=== PATIENT | female | born 1960 | race Caucasian/White ===

== ENCOUNTER → 2019-11-30 10:19 | Outpatient (CLI) | payer OTHER, SELFPAY ==
--- NOTE | ~2019-11-30 | DEXA_ITS ---
Bone Density Report Name: Lesly Corral Age: 59 Sex: Female Ethnicity: White Date of : 1960 Indication: monitoring treatment; height loss; hysterectomy; postmenopausal Referring Provider: MARILU, ALEX Study: Bone densitometry was performed. Exam Date: November 30, 2019 Accession number: [id number] Bone Density: Region BMD T-score Z-score Classification AP Spine (L2, L3) 1.105 0.4 1.7 Normal Femoral Neck (Left) 0.761 -0.8 0.4 Normal Total Hip (Left) 0.974 0.3 1.1 Normal Femoral Neck (Right) 0.872 0.2 1.4 Normal Total Hip (Right) 0.992 0.4 1.3 Normal Total Hip Mean 0.983 0.4 1.2 Normal World Health Organization criteria for BMD impression classify patients as: Normal (T-score at or above -1.0), Osteopenia (T-score between -1.0 and -2.5), or Osteoporosis (T-score at or below -2.5). 10-year Fracture Risk: FRAX not reported because: All T-scores for Spine Total, Hip Total, Femoral Neck at or above -1.0 Treated for osteoporosis Previous Exams: Region Exam Age BMD T-score BMD Change BMD Change Date g/cm2 vs Baseline vs Previous AP Spine(L2, L3) 11/30/2019 59 1.105 0.4 0.102 0.034* 06/13/2012 52 1.072 0.1 0.069 0.011 05/30/2009 48 1.060 0.0 0.057 0.057 04/23/2005 44 1.003 -0.5 Total Hip(Left) 11/30/2019 59 0.974 0.3 -0.055 0.023 06/13/2012 52 0.951 0.1 -0.078 0.015 05/30/2009 48 0.937 0.0 -0.093 -0.093 04/23/2005 44 1.029 0.7 Total Hip(Right) 11/30/2019 59 0.992 0.4 -0.048 0.016 06/13/2012 52 0.976 0.3 -0.064 0.018 05/30/2009 48 0.958 0.1 -0.082 -0.082 04/23/2005 44 1.040 0.8 *Denotes significance at 95% confidence level, LSC for AP Spine = 0.022 g/cm2, LSC for Total Hip = 0.027 g/cm2 Clinical Information Provided by Patient: Is being treated for osteoporosis Has used the following medications: Fosamax (i.e. alendronate), HRT (i.e. estrogen/hormone therapy), Vitamin D Has the following medical conditions: Hysterectomy Patient maximum height was 63 Menopause Age: 42 No regular weight bearing exercise Does not regularly consume dairy products Drinks caffeinated beverages Onset of menses at age 11 Number of children 0 Missed period for more than 6 months in a row Impression: The patient has normal
== END ==
PROVIDERS: Visit Provider Nurse Practitioner
DX: M85.88 Other specified disorders of bone density and structure, other site (principal)
CPT/HCPCS: 77080

== ENCOUNTER → 2022-07-30 09:35 | Outpatient (CLI) | payer BC, SELFPAY ==
--- NOTE | ~2022-07-30 | DEXA_ITS ---
Bone Density Report Name: KYLE WARD Age: 62 Sex: Female Ethnicity: White Date of : 1960 Indication: postmenopausal; screening for osteoporosis; height loss; hysterectomy; Referring Provider: MARILU, ALEX Study: Bone densitometry was performed. Exam Date: July 30, 2022 Accession number: [id number] Bone Density: Region BMD T-score Z-score Classification AP Spine (L2, L3) 1.065 0.1 1.6 Normal Femoral Neck (Left) 0.687 -1.5 -0.1 Osteopenia Total Hip (Left) 0.919 -0.2 0.8 Normal Femoral Neck (Right) 0.790 -0.5 0.8 Normal Total Hip (Right) 0.922 -0.2 0.8 Normal Total Hip Mean 0.921 -0.2 0.8 Normal World Health Organization criteria for BMD impression classify patients as: Normal (T-score at or above -1.0), Osteopenia (T-score between -1.0 and -2.5), or Osteoporosis (T-score at or below -2.5). 10-year Fracture Risk(1): Major Osteoporotic Fracture 7.2% Hip Fracture 0.6% Reported Risk Factors: [place] (), Neck BMD=0.687, BMI=39.1 (1) FRAX(R) Version 3.08. Fracture probability calculated for an untreated patient. Fracture probability may be lower if the patient has received treatment. Previous Exams: Region Exam Age BMD T-score BMD Change BMD Change Date g/cm2 vs Baseline vs Previous AP Spine(L2, L3) 07/30/2022 62 1.065 0.1 0.062* -0.040 11/30/2019 59 1.105 0.4 0.102 0.034* 06/13/2012 52 1.072 0.1 0.069 0.011 05/30/2009 48 1.060 0.0 0.057 0.057 04/23/2005 44 1.003 -0.5 Total Hip(Left) 07/30/2022 62 0.919 -0.2 -0.110* -0.055 11/30/2019 59 0.974 0.3 -0.055 0.023 06/13/2012 52 0.951 0.1 -0.078 0.015 05/30/2009 48 0.937 0.0 -0.093 -0.093 04/23/2005 44 1.029 0.7 Total Hip(Right) 07/30/2022 62 0.922 -0.2 -0.118* -0.070 11/30/2019 59 0.992 0.4 -0.048 0.016 06/13/2012 52 0.976 0.3 -0.064 0.018 05/30/2009 48 0.958 0.1 -0.082 -0.082 04/23/2005 44 1.040 0.8 *Denotes significance at 95% confidence level, LSC for AP Spine = 0.022 g/cm2, LSC for Total Hip = 0.027 g/cm2 Clinical Information Provided by Patient: Has used the following medications: Vitamin D, Calcium, MTV Has the following medical conditions: Hysterectomy Patient maximum height was 63.0 Menopause Age: 42 No r
== END ==
PROVIDERS: PCP Family Medicine; Visit Provider Nurse Practitioner
DX: Z78.0 Asymptomatic menopausal state (principal); M85.852 Other specified disorders of bone density and structure, left thigh
CPT/HCPCS: 77080

== ENCOUNTER → 2023-02-17 11:30 | Outpatient (CLI) | payer BC, SELFPAY ==
--- NOTE | ~2023-02-17 | XR_ITS ---
AP, oblique, and lateral views of the left second toe CLINICAL HISTORY: Pain FINDINGS: No acute fracture or dislocation seen. Probable minimal degenerative change of the interpha langeal joints of the second and third toes. Soft tissues are unremarkable. IMPRESSION: No acute abnormality seen. Mild degenerative change of the interphalangeal joints of the second and third left toes. Reviewed, dictated and finalized at location .
== END ==
PROVIDERS: PCP Family Medicine; Visit Provider Physician Assistant Medical
DX: M79.675 Pain in left toe(s) (principal)
CPT/HCPCS: 73660

== ENCOUNTER 2023-07-08 00:26 | Day surgery (SDC) | payer BC, SELFPAY ==
[2023-06-27 15:29] VITALS: BMI 35.9
[2023-07-08 06:51] VITALS: BP 163/73; PULSE 76; RESP 20; TEMP 36.2; O2SAT 99; BMI 35.0
[2023-07-08] MEDS: LACTATED RINGERS 1,000 ML 150 ML IV CONT (07:02)
[2023-07-08 07:14] LABS: Glucose Point of Care 135 mg/dl (65-105)
--- NOTE | 2023-07-08 07:24 | PM.HPGS ---
History of Present Illness History of Present Illness Consent: Risks, benefits, and alternatives have been discussed and questions answered. Patient agrees to proceed with procedure. Chief complaint: positive cologuard Narrative: Lesly Corral is a 63 year old female Presents for screening colonoscopy. Patient recently found to have positive Cologuard test. She reports her weight appetite bowel movements are normal. In the past she had a history of an anal fissure. She states she strains stools occasionally. Family history is noncontributory. Review of Systems Review of Systems: Review of systems noncontributory. [facility] Past Medical History Medical History Allergic rhinitis Broken wrist Chronic renal insufficiency, stage III (moderate) Diabetes mellitus Hypertension Mixed hyperlipidemia Surgical History Surgical History History of hysterectomy History of tonsillectomy Family History Family History Mother Family history of multiple sclerosis Social History Social History Smoking status: Never smoker Second hand tobacco smoke exposure: No Alcohol intake: current Alcohol use details: seldom Substance use: never Substance use type: does not use Lack of Transportation: No Lack of Food: Never True Current Housing: I Have Housing Concerned About Future Housing: No Difficulty Paying Gas/Electric Bills: No Difficulty Paying for Meds: No Currently Unemployed: No Education: Trade/Vocational Certificate Difficulty w/ Childcare or Family Care: No Living arrangements: alone Occupation/Education: occupation Gender identity (if verbalized by the patient): Female Spiritual care concerns: No Agree to blood products: Yes Meds Home Medications and Allergies Home Medications Medication Instructions Recorded Confirmed Type calcium carbonate 600 mg-vitamin 1 tablet PO DAILY 07/25/19 06/27/23 History D3 5 mcg (200 unit) tablet vitamin B12 500 mcg-folic acid 400 1 tablet PO DAILY 10/09/21 06/27/23 History mcg tablet blood sugar diagnostic (Blood #50 ea 04/09/22 03/18/23 Rx Glucose Test strips) blood-glucose meter #1 ea 04/09/22 03/18/23 Rx cholecalciferol (vitamin D3) 125 125 mcg PO DAILY 04/09/22 06/27/23 History mcg (5,000 unit) capsule (Dialyvite Vitamin D) omega-3 fatty acids-fish oil 360 1 cap PO BID 04/09/22 06/27/23 History mg-1,200 mg capsule (Fish Oil) fenofibrate micronized 67 mg 67 mg PO DAILY #90 caps 12/07/22 06/27/23 Rx capsule hydrochlorothiazide 25 mg tablet 25 mg PO DAILY #90 tabs 04/27/23 06/27/23 Rx losartan 100 mg tablet 100 mg PO DAILY #90 tabs 04/27/23 06/27/23 Rx levothyroxine 25 mcg tablet See Rx Instructions PO DAILY #45 06/02/23 06/27/23 Rx tabs metformin 1,000 mg tablet 1,000 mg PO BID #60 tabs 06/02/23 06/27/23 Rx colchicine (gout) 0.6 mg tablet 0.6 mg PO BID PRN gout #20 tabs 06/03/23 06/27/23 Rx Allergies Allergy/AdvReac Type Severity Reaction Status Date / Time ARTIFICIAL NAIL PRODUCT AdvReac Mild SORE, Uncoded 07/08/23 06:48 SWELLING CUTICLES Vital Signs Vital Signs - 24 hr 07/08/23 06:51 Temperature 97.1 F L Pulse Rate 76 Respiratory Rate 20 Blood Pressure 163/73 H Pulse Oximetry 99 Oxygen Delivery Room Air Exam Narrative: Physical exam reveals patient to be alert. Vital signs stable. HEENT exam is unremarkable. Patient is anicteric. Lungs are clear to auscultation and percussion. Heart is without murmur or extra sounds. Abdominal exam bowel sounds are present soft nontender with no hepatosplenomegaly. digital rectal exam is normal. Assessment and Plan Assessment and plan (1) Positive colorectal cancer screening using Cologuard test: C
--- NOTE | 2023-07-08 07:45 | WPDANESEPPF ---
Anes - Initial Pre Proc Eval Procedure: Operation Date: 07/08/23 08:00 Proposed Procedures p Colonoscopy - Lc Pruitt MD Date/Time: 07/08/23 07:45 Surgeon: Lc Pruitt MD Pre Op Diagnosis: positive cologuard Patient Data Age: 63 Gender: F Height: 1.63 m Weight: 92.6 kg Last Vital Signs Temp 97.1 F L 07/08/23 06:51 Pulse 76 07/08/23 06:51 Resp 20 07/08/23 06:51 BP 163/73 H 07/08/23 06:51 Pulse Ox 99 07/08/23 06:51 O2 Del Method Room Air 07/08/23 06:51 Allergies Allergy/AdvReac Type Severity Reaction Status Date / Time ARTIFICIAL NAIL PRODUCT AdvReac Mild SORE, Uncoded 07/08/23 06:48 SWELLING CUTICLES Home Medications Medication Instructions Recorded Confirmed Type calcium carbonate 600 mg-vitamin 1 tablet PO DAILY 07/25/19 06/27/23 History D3 5 mcg (200 unit) tablet vitamin B12 500 mcg-folic acid 400 1 tablet PO DAILY 10/09/21 06/27/23 History mcg tablet blood sugar diagnostic (Blood #50 ea 04/09/22 03/18/23 Rx Glucose Test strips) blood-glucose meter #1 ea 04/09/22 03/18/23 Rx cholecalciferol (vitamin D3) 125 125 mcg PO DAILY 04/09/22 06/27/23 History mcg (5,000 unit) capsule (Dialyvite Vitamin D) omega-3 fatty acids-fish oil 360 1 cap PO BID 04/09/22 06/27/23 History mg-1,200 mg capsule (Fish Oil) fenofibrate micronized 67 mg 67 mg PO DAILY #90 caps 12/07/22 06/27/23 Rx capsule hydrochlorothiazide 25 mg tablet 25 mg PO DAILY #90 tabs 04/27/23 06/27/23 Rx losartan 100 mg tablet 100 mg PO DAILY #90 tabs 04/27/23 06/27/23 Rx levothyroxine 25 mcg tablet See Rx Instructions PO DAILY #45 06/02/23 06/27/23 Rx tabs metformin 1,000 mg tablet 1,000 mg PO BID #60 tabs 06/02/23 06/27/23 Rx colchicine (gout) 0.6 mg tablet 0.6 mg PO BID PRN gout #20 tabs 06/03/23 06/27/23 Rx Laboratory Tests 07/08/23 07:00 POC Capillary Glucose 135 H mg/dl (65-105) Patient hx anesthesia problems: none Family hx anesthesia problems: none Results Review: All pre-operative results and documents have been reviewed as part of the pre-operative evaluation. [facility] Past Medical History Medical History Allergic rhinitis Broken wrist Chronic renal insufficiency, stage III (moderate) Diabetes mellitus Hypertension Mixed hyperlipidemia Surgical History Surgical History History of hysterectomy History of tonsillectomy Family History Family History Mother Family history of multiple sclerosis Social History Social History Smoking status: Never smoker Second hand tobacco smoke exposure: No Alcohol intake: current Alcohol use details: seldom Substance use: never Substance use type: does not use Lack of Transportation: No Lack of Food: Never True Current Housing: I Have Housing Concerned About Future Housing: No Difficulty Paying Gas/Electric Bills: No Difficulty Paying for Meds: No Currently Unemployed: No Education: Trade/Vocational Certificate Difficulty w/ Childcare or Family Care: No Living arrangements: alone Occupation/Education: occupation Gender identity (if verbalized by the patient): Female Spiritual care concerns: No Agree to blood products: Yes Anes - Eval Final PreProcedure Day of Procedure 07/08/23 07:45 Patient weight: obese Heart: regular rate and rhythm Lungs: clear to auscultation Airway: Mallampati scale class III Neurological: alert and oriented Last oral intake: >/= 8 hours ASA classification: III Emergent: no Anesthetic plan: proceed Anesthesia type and monitoring: general GIVS and standard monitoring Results Review: All pre-operative results and documents have been reviewed as part of the pre-operative evaluation. Informed Consent:
[2023-07-08 08:13] VITALS: BP 107/61; PULSE 65; RESP 19; O2SAT 99
[2023-07-08 08:23] VITALS: BP 136/85; PULSE 64; RESP 20; O2SAT 99
[2023-07-08 08:33] VITALS: BP 154/63; PULSE 60; RESP 16; O2SAT 100
== END 2023-07-08 08:44 | disposition home or self-care (01) ==
PROVIDERS: PCP Family Medicine; Visit Provider Internal Medicine Gastroenterology
PROC: 0DJD8ZZ Inspection of Lower Intestinal Tract, Via Natural or Artificial Opening Endoscopic (ICD-10-PCS; CPT 45378; principal; 2023-07-08 08:00)
DX: R19.5 Other fecal abnormalities (principal); D12.5 Benign neoplasm of sigmoid colon; E78.2 Mixed hyperlipidemia; I12.9 Hypertensive chronic kidney disease with stage 1 through stage 4 chronic kidney disease, or unspecified chronic kidney disease; E11.22 Type 2 diabetes mellitus with diabetic chronic kidney disease; N18.30 Chronic kidney disease, stage 3 unspecified; Z79.84 Long term (current) use of oral hypoglycemic drugs; E66.9 Obesity, unspecified; Z68.35 Body mass index [BMI] 35.0-35.9, adult
CPT/HCPCS: 45385; 82948; 88305; J2704; J7120

== ENCOUNTER 2024-07-13 08:39 | Outpatient (CLI) | payer BC, SELFPAY ==
--- NOTE | ~2024-07-13 | US_ITS ---
US renal BI 07/13/2024 08:56 Procedure: Realtime transabdominal ultrasound of the kidneys and bladder. Indication: Essential hypertension Comparison: No prior studies for comparison. Findings: Renal echotexture is normal bilaterally without hydronephrosis, contour deforming mass or r enal calculus. The right kidney measures 10.3 cm and left kidney measures 10.8 cm. Bladder within no rmal limits. Impression: 1: Unremarkable renal ultrasound. No stones, masses or hydronephrosis. Reviewed, dictated and finalized at location B. Impression: 1: Unremarkable renal ultrasound. No stones, masses or hydronephrosis.
== END 2024-07-13 08:40 | disposition home or self-care (01) ==
PROVIDERS: PCP Family Medicine; Visit Provider Internal Medicine Nephrology
DX: I10 Essential (primary) hypertension (principal)
CPT/HCPCS: 76775

== ENCOUNTER 2024-12-10 10:47 | Outpatient (CLI) | payer BC, SELFPAY ==
--- NOTE | ~2024-12-10 | DEXA_ITS ---
Bone Density Report Name: KYLE WARD Age: 64 Sex: Female Ethnicity: White Date of : 1960 Indication: postmenopausal; screening for osteoporosis; parental hip fracture; height loss; hysterectomy; Referring Provider: DOROTHEA, BUTCH Study: Bone densitometry was performed. Exam Date: December 10, 2024 Accession number: [id number] Bone Density: Region BMD T-score Z-score Classification AP Spine(L1-L4) 0.987 -0.5 1.1 Normal Femoral Neck (Left) 0.595 -2.3 -0.9 Osteopenia Total Hip (Left) 0.856 -0.7 0.4 Normal Femoral Neck (Right) 0.618 -2.1 -0.6 Osteopenia Total Hip (Right) 0.868 -0.6 0.5 Normal Total Hip Mean 0.862 -0.7 0.5 Normal World Health Organization criteria for BMD impression classify patients as: Normal (T-score at or above -1.0), Osteopenia (T-score between -1.0 and -2.5), or Osteoporosis (T-score at or below -2.5). 10-year Fracture Risk(1): Major Osteoporotic Fracture 20% Hip Fracture 1.8% Reported Risk Factors: [place] (), Neck BMD=0.595, BMI=33.0, parental fracture (1) FRAX(R) Version 3.08. Fracture probability calculated for an untreated patient. Fracture probability may be lower if the patient has received treatment. Clinical Information Provided by Patient: Parent has had a hip fracture Has used the following medications: Fosamax (i.e. alendronate) Has the following medical conditions: Hysterectomy Patient maximum height was 63.0 Menopause Age: 46 No regular weight bearing exercise Does not regularly consume dairy products Drinks caffeinated beverages Onset of menses at age 13 Number of children 0 Impression: The patient has low bone mass, based on the Left Femoral Neck T-score. The patient has an estimated ten-year risk of hip fracture of 1.8% and an estimated ten-year risk of major fracture of 20%, based on the WHO FRAX algorithm. The patient has risk factors, including: parental hip fracture. Discussion: BONE DENSITY IS LOW AT ONE OR MORE SKELETAL SITES. THE PATIENT'S BMD AND CLINICAL RISK FACTORS CONTRIBUTE TO THIS PATIENT'S INCREASED RISK OF FRACTURE. This patient's lowest T-score is low at one or more skeletal sites. It meets the World Health Organization's (WHO) criteria for ?low bone mass? (T-score between -1.0 and -2.5). The patient's 10-year risk of a major osteoporotic fracture as calculated by FRAX exceeds the threshold where pharmacological therapy is recommended by the National Osteoporosis Foundation (NOF). However, all treatment decisions require clinical judgment and consideration of individual patient factors, including patient preferences, comorbidities, previous drug use, risk factors not captured in the FRAX model (e.g., frailty, falls, vitamin D deficiency, increased bone turnover, interval significant decline in bone density) and possible under or overestimation of fracture risk by FRAX. The patient should follow a healthful lifestyle (good nutrition with adequate calcium and vitamin D, and appropriate weight-bearing exercise). Follow-Up: Consider a repeat BMD and Vertebral Fracture Assessment (VFA) exam in 2 years or sooner if medically necessary, to reassess this patient's status. Reported by: ALEJANDRA on 12/10/2024 11:24:00 AM. Reviewed, dictated and finalized at location [facility]
--- OUTSIDE RECORDS SUMMARY | 2024-12-10 12:51 | XMS_ITS | Encounter Summary ---
Author Organization [facility] Address [address] [place] [id number] Care Team Providers Care Technical Designer Name Role Phone Malgorzata Landrum MD Primary Care Provider [phone] Encounter Details Date Type Department Care Team (Late st Contact Info) Description 05/07/2024 Tellyo Message [facility] - [place] [address] [place], [facility] Provider insruance card Social History Tobacco Use Types Packs/Day Years Used Date Smoking Tobacco: Never Smokeless Tobacco: Never Alcohol Use Standard Drinks/Week Comments Not Currently 0 (1 standard drink = 0.6 oz pur e alcohol) PHQ-2 Answer Date Recorded Patient Health Questionnaire-2 Score 0 04/18/2024 Comments No Sex and Gender Information Value Date Recorded Sex Assigned at Female 04/06/2024 3:03 PM CDT Legal Sex Female 2:12 PM CDT Gender Identity Female 04/06/2024 3:03 PM CDT Sexual Orientation Bisexual 04/06/2024 3: 03 PM CDT documented as of this encounter Plan of Treatment Not on file documented as of this encounter Visit Diagnoses Not on filedocumented in this encounter Care Teams Technical Designer Relationship Specialty Start Date End Date Malgorzata Landrum MD [address] [place] [id number] PCP - General FAMILY PRACTICE 04/06/24 documented as of this encounter
--- OUTSIDE RECORDS SUMMARY | 2024-12-10 12:51 | XMS_ITS | Clinical Summary ---
Author Organization [facility] Address [address] [place] [address] Care Team Providers Care Braided Rug Maker Name Role Phone oRssana Cope MD Primary Care Provider [phone] Source Comments [employer] [facility],non-owned Affiliates and Associated Physician Practices is amultiple site organization consisting of ambulatory clinics and hospital sitesin [place], [place], [place] and [place]. This disclosure is being madepursuant to the Care Everywhere program and may not contain all information available regarding this patient. Last updated 18.[employer] Allergies No known active allergies Medications * Be aware that medications may not be up to date on this document. Alwaysverify current medications with the patient. Medication Sig Dispensed Refills Start Date End Date Status quinapril (ACCUPRIL) 40 MG tablet Take 40 mg by mouth once daily Active estradiol, in olive oil, tablet compound Take 2 mg by mouth every morning Active raNITIdine (ZANTAC) 300 MG capsule Take 300 mg by mouth once daily Active vitamin D, ergocalciferol, (DRISDOL) 1.25 MG (18223 UT) capsule Take 50,000 Units by mouth every 30 days Active Alendronate Sodium (FOSAMAX PO) Active Immunizations Name Administration Dates Next Due COVID PFIZER BIVALENT 12Y+ 30mcg/0.3ML 07/26/2022 Covid Pfizer primary monoval ent 12+ yr 0.3mL Purple cap 08/19/2021,01/24/2021,01/01/2021 INFLUENZA VACCINE 07/15/2024 INFLUENZA VACCINE, CELL CULT URE, QUADR. (FLUCELVAX QUADRIVALENT; 6MO+), 0.5 ML (CCIIV4) 07/28/2018 INFLUENZA VACCINE, QUADR. (F LUZONE; FLULAVAL; FLUARIX; AFLURIA QUADRIVALENT; 6MO+), 0.5 ML (IIV4) 08/01/2023,07/12/2022,07/23/2021, 019 Social History Tobacco Use Types Packs/Day Years Used Date Smoking Tobacco: Never Smokeless Tobacco: Never Alcohol Use Standard Drinks/Week Comments Yes 0 (1 standard drink = 0.6 oz pur e alcohol) Sex and Gender Information Value Date Recorded Sex Assigned at Not on file Gender Identity Not on file Sexual Orientation Not on file Last Filed Vital Signs Vital Sign Reading Time Taken Comments Blood Pressure 146/86 11/26/2019 3:26 PM CDT Pulse 75 11/26/2019 3:26 PM CDT Temperature 36.8 C (98.2 F) 11/26/2019 3:26 PM CDT Respiratory Rate 16 11/26/2019 3:26 PM CDT Oxygen Saturation 98% 11/26/2019 3:26 PM CDT Inhaled Oxygen Concentration - - Weight 88 kg (194 lb) 11/26/2019 3:26 PM CDT Height 162.6 cm (5' 4 ) 11/26/2019 3:26 PM CDT Body Mass Index 33.3 11/26/2019 3:26 PM CDT Plan of Treatment Health Maintenance Due Date Last Done Comments COLOGUARD (AGES 45-75) - COLON CA SCREENING 1960 COLON MONITORING 1960 COLONOSCOPY - COLON CA SCREENING 1961 CT COLONOGRAPHY - COLON CA SCREENING 1960 Colorectal Cancer Screening 1960 FIT - COLON CA SCREENING 1961 FLEX SIG - COLON CA SCREENING 1961 LIPID TESTING 1960 MAMMOGRAM 1960 PAP SMEAR 1961 HIV SCREENING 1976 HEPATITIS C SCREENING 05/29/1979 DTAP/TDAP/TD VACCINES (1 - Tdap) 1980 PNEUMOCOCCAL VACCINE 50+ (1 of 1 - PCV) 2011 ZOSTER VACCINE (1 of 2) 2011 SCREENING FOR DIABETES 11/26/2019 COVID-19 VACCINE (5 - season) 2024 07/26/2022, 08/19/2021, 01/24/2021, Additional history exists DEPRESSION SCREENING 09/19/2024 Respiratory Syncytial Virus (RSV) Vaccine Pt: or over 60 yrs (1 - 1-dose 75+ series) 2036 INFLUENZA VACCINE Completed 07/15/2024, , 07/12/2022, Additional history exists HEPATITIS B VACCINE Aged Out No longe r eligible based on patient's age to complete this topic HIB VACCINE Aged Out No longer eligi ble based on patient's age to complete this topic HPV VACCINE Aged Out No longer eligi ble based on patient's age to complete this topic MENINGOCOCCAL (Group B) VACCINE SHARED DECISION-MAKING Aged Out No longer eligible based on patient's age to complete this topic MENINGOCOCCAL GROUPS A/C/Y/W VACCINE Aged Out No longer eligible based on patient's age to complete this topic PNEUMOCOCCAL VACCINE Aged Out No long er eligible based on patient's age to complete this topic Care Teams Braided Rug Maker Relationship Specialty Start Date End Date Rossana Cope MD PCP - General Family Medicine 11/26/19
--- OUTSIDE RECORDS SUMMARY | 2024-12-10 12:51 | XMS_ITS | Clinical Summary ---
Author Organization [facility] Address [address] [place] [address] Care Team Providers Care Paperhanger And Painter Name Role Phone Unavailable Primary Care Provider Unavailabl e Encounters Date Type Department Care Team Description 12/05/2024 External Device Data ST[facility] ABSTRACTION Provider, Abstract 11/27/2024 External Device Data ST[facility] ABSTRACTION Provider, Abstract 11/27/2024 External Device Data ST[facility] ABSTRACTION Provider, Abstract 11/26/2024 External Device Data STL ABSTRACTION Provider, Abstract 11/24/2024 External Device Data STL ABSTRACTION Provider, Abstract 11/23/2024 External Device Data STL ABSTRACTION Provider, Abstract 11/20/2024 External Device Data STL ABSTRACTION Provider, Abstract 11/06/2024 External Device Data STL ABSTRACTION Provider, Abstract 10/11/2024 External Device Data STL ABSTRACTION Provider, Abstract 10/10/2024 External Device Data STL ABSTRACTION Provider, Abstract 10/09/2024 External Device Data STL ABSTRACTION Provider, Abstract 10/02/2024 External Device Data STL ABSTRACTION Provider, Abstract 09/25/2024 External Device Data STL ABSTRACTION Provider, Abstract from Last 3 Months Social History Tobacco Use Types Packs/Day Years Used Date Smoking Tobacco: Never Assessed Comments Unknown Sex and Gender Information Value Date Recorded Sex Assigned at Not on file Legal Sex Female 3:27 PM CDT Gender Identity Not on file Sexual Orientation Not on file Plan of Treatment Health Maintenance Due Date Last Done Comments PNEUMOCOCCAL VACCINE 0-49 YE ARS (1 of 2 - PCV) 1967 DIABETES ANNUAL FOOT EXAM 1979 DIABETES ANNUAL RETINAL EXAM 1979 DIABETES HBA1C Q 6 MONTHS 1979 DIABETES MICROALBUMIN ANNUAL SCREEN 1979 LDL CHOLESTEROL ANNUAL 1979 DTAP/TDAP/TD VACCINES (1 - Tdap) 1980 COLORECTAL SCREENING 2006 Colorectal Cancer Screening 2006 FIT-DNA Q 3 years 2006 FIT/FOBT Q 1 year 2006 Flex Sig/CT Colonography Q 5 years 2006 ZOSTER VACCINE (1 of 2) 2011 PAP SMEAR 07/15/2020 07/15/2017 INFLUENZA VACCINE (#1) 2024 , 07/12/2022, 07/23/2021, Additional history exists COVID-19 Vaccine (5 - 2023-2 5 season) 2024 07/26/2022, 08/19/2021, 01/24/2021, Additional history exists BREAST CANCER SCREENING 08/21/2025 08/21/2024 RSV VACCINE (60+ or ) (1 - 1-dose 75+ series) 2036 Procedures Procedure Name Priority Date/Time Associated Diagnosis Comments MAMMO 3D TIP SCREEN BILAT W OR WO CAD Routine 08/21/2024 9:02 AM UNDERGROUND MINE MACHINERY MECHANIC Encounter for screening for malignant neoplasm of breast, unspecified screening modality from Last 3 Months or Most Recently Relevant to Health Maintenance Results * MAMMO 3D TIP SCREEN BILAT W OR WO CAD (08/21/2024 9:02 AM UNDERGROUND MINE MACHINERY MECHANIC) Anatomical Region Laterality Modality Breast Bilateral Mammography 08/21/2024 9:02 AM UNDERGROUND MINE MACHINERY MECHANIC Impressions 08/21/2024 9:12 AM UNDERGROUND MINE MACHINERY MECHANIC IMPRESSION: BI-RADS 2, benign findings consistent with bilateral benign calcifications. Annual screening mammography is advised. Narrative 08/21/2024 9:12 AM UNDERGROUND MINE MACHINERY MECHANIC Bilateral screening mammogram. Comparison is made with bilateral screening mammogram from 07/02/2022 and 11/26/2019. CLINICAL HISTORY: Patient is a 64-year-old female without personal or first-degree family history of the breast cancer reported. TECHNIQUE: Bilateral CC and MLO images of the breasts are obtained and reviewed this 2-D mammogram and 3-D tomosynthesis. FINDINGS: The breast parenchyma is composed of scattered fibroglandular densities, category B. Within the left central lower posterior breast, there is unchanged (since 2019 ) intramammary lymph node seen on tomosynthesis. Bilaterally, there are coarse of dystrophic calcifications and oil cysts. Elsewhere, bilaterally, there are no suspicious masses, microcalcifications in clusters, architectural distortions or asymmetric densities. Malgorzata Hardy CN MAMMO ORDERABLES Final Re sult from Last 3 Months or Most Recently Relevant to Health Maintenance Insurance [facility] BLUE ACCESS [facility]
--- OUTSIDE RECORDS SUMMARY | 2024-12-10 12:51 | XMS_ITS | Clinical Summary ---
Author Organization [facility] Address [facility] [place] [address] Care Team Providers Care Scale Clerk Name Role Phone Malgorzata Landrum MD Primary Care Provider [phone] Allergies Active Allergy Reactions Criticality Noted Date Comments Lisinopril Cough,Eyes Water & Itch,Rash Low 024 Medications OZEMPIC 2 mg/dose injection (PEN) 2 mg once a week. Takes on Tuesday02/20/2024 Active metFORMIN (GLUCOPHAGE) 1000 MG tablet Take 1 tablet (1,000 mg total) by mouth 2 (two) times daily. 01/13/2024 Active losartan (COZAAR) 100 MG tablet Take 1 tablet (100 mg total) by mouth daily. 12/26/2023 Active levothyroxine (SYNTHROID) 25 MCG tablet 1 tablet (25 mcg total). 12/27/2023 Active hydroCHLOROthia zide (HYDRODIURIL) 25 MG tablet Take 1 tablet (25 mg total) by mouth daily. 12/28/2023 Active vitamin D2, ergocalciferol, (DRISDOL) 1.25 mg capsule Take 1 capsule (1.25 mg total) by mouth once a week. On Tuesday12/04/2023 Active fenofibrate micronized (LOFIBRA) 67 MG Cap capsule Take 1 capsule (67 mg total) by mouth daily. 12/05/2023 Active colchicine 0.6 MG tablet TAKE 1 TABLET BY MOUTH TWICE DAILY NEEDED FOR GOUT 06/04/2023 Active omeprazole (PRILOSEC) 20 MG capsule Take 1 capsule (20 mg total) by mouth daily. Active Multiple Vitamins-[place] ls (MULTIVITAMIN ADULTS OR) Take 1 tablet by mouth daily. Active [place]-3 Fatty Acids (FISH OIL) 500 MG capsule Take 500 mg by mouth daily. Active Cyanocobalamin (B-12) 2000 MCG Tab Take 1 tablet by mouth daily. Active Active Problems Problem Noted Date Diagnosed Date Trigger finger of left thumb 05/01/2024 Type 2 diabetes mellitus (CMS/HCC [facility]/HCC) 04/18 Hypothyroidism 04/18/2024 Primary hypertension 04/18/2024 Hyperlipidemia 04/18/2024 Gout 04/18/2024 Family History Medical History Relation Comments COPD Mother Early Mother 76yrs Relation Status Comments Mother Social History Tobacco Use Types Packs/Day Years Used Date Smoking Tobacco: Never Smokeless Tobacco: Never Tobacco Cessation:Counseling Given: No Alcohol Use Standard Drinks/Week Comments Not Currently [...] Orientation Bisexual 04/06/2024 3: 03 PM CDT Last Filed Vital Signs Vital Sign Reading Time Taken Comments Blood Pressure 131/84 05/18/2024 8:10 AM CDT Pulse 69 05/18/2024 8:10 AM CDT Temperature 36.9 C (98.5 F) 05/18/2024 7:49 AM CDT Respiratory Rate 16 05/11/2024 1:25 PM CDT Oxygen Saturation 95% 05/18/2024 7:49 AM CDT Inhaled Oxygen Concentration - - Weight 79 kg (174 lb 3.2 oz) 05/18/2024 7:49 AM CDT Height 162.6 cm (5' 4 ) 05/18/2024 7:49 AM CDT Body Mass Index 29.9 05/18/2024 7:49 AM CDT Plan of Treatment Health Maintenance Due Date Last Done Comments Colorectal Cancer Screening Colonoscopy (10 Years) 1961 Kidney Health Evaluation 1961 Hemoglobin A1C 1961 Lipid Panel 1961 Annual Physical 1964 Pneumococcal Vaccine: Pediatrics (0 to 5 Years) and At-Risk Patients (6 to 64 Years) (1 of 2 - PCV) 1967 Diabetes: Retinopathy Eye Exam 1979 Hepatitis C 1979 DTaP, Tdap and Td Vaccines (1 - Tdap) 1980 Mammogram Screening 2001 Zoster Vaccines (1 of 2) 2011 COVID-19 Vaccine (5 - season) 2024 07/26/2022, 08/19/2021, 01/24/2021, Additional history exists Influenza Adult (#1) 2024 08/01/2023, 07/12/2022, 07/23/2021, Additional history exists PHQ-2 (Physician Goldvein) 09/19/2024 04/18/2024 PHQ-2 (Physician Goldvein) 04/18/2025 04/18/2024 RSV Immunization or 60+ Years (1 - 1-dose 75+ series) 2036 Meningococcal B Vaccine Aged Out No l onger eligible based on patient's age to complete this topic Meningococcal Vaccine Aged Out No mathew angelique eligible based on patient's age to complete this topic RSV Immunizations Under 20 Months Aged Out No longer eligible based on patient's age to complete this topic Insurance [employer] Member Subscriber Plan / Payer (Ef fective 2023-Present) Name:Ellis Lesly Brandan Relation to Subscriber:Self Name:Ellis Lesly Brandan Payer ID:Not on file Group ID:Not on file Type:Not on file Address: [address] [facility] Care Teams Scale Clerk Relationship Specialty Start Date End Date Malgorzata Landrum MD [address] [place] [address] PCP - General FAMILY PRACTICE 04/06/24
== END 2024-12-10 10:48 | disposition home or self-care (01) ==
LOC: ANHIMG 10:54
PROVIDERS: PCP Family Medicine; Visit Provider Nurse Practitioner Women's Health
DX: M85.852 Other specified disorders of bone density and structure, left thigh (principal); M85.851 Other specified disorders of bone density and structure, right thigh; Z78.0 Asymptomatic menopausal state
CPT/HCPCS: 77080